=== PATIENT | female | born 1995 | race Caucasian/White ===

== ENCOUNTER 2016-12-27 21:11 | Inpatient (IN) | payer MEDICAID ==
[~2016-12-27] VITALS: Ht 152.4 cm; Wt 61.3 kg
[2016-12-27 21:38] VITALS: Ht 152.4 cm; Wt 61.3 kg
[2016-12-27] MEDS: LACTATED RINGER'S 1,000 ML IV SCH (21:55)
[2016-12-27 22:00] VITALS: BP 135/82; PULSE 75; RESP 18
[2016-12-27] MEDS ORDERED: LACTATED RINGER'S 1,000 ML IV PRN (22:00)
[2016-12-27] MEDS ORDERED: METHYLERGONOVINE 0.2 MG INJ IM PRN (22:00)
[2016-12-27] MEDS ORDERED: OXYTOCIN 30 UNITS/LR 500 ML IV SCH (22:00)
[2016-12-27] MEDS ORDERED: LIDOCAINE 1% (MPF) 30 ML INJ INJ PRN (22:00)
[2016-12-27] MEDS ORDERED: CARBOPROST 250 MCG INJ IM PRN (22:00)
[2016-12-27] MEDS ORDERED: OXYTOCIN 30 UNITS/LR 500 ML IV PRN (22:00)
[2016-12-27] MEDS ORDERED: ACETAMINOPHEN/CODEINE #3 TAB PO PRN (22:00)
[2016-12-27] MEDS ORDERED: MISOPROSTOL 200 MCG TAB PR PRN (22:00)
[2016-12-27] MEDS ORDERED: IBUPROFEN 600 MG TAB PO PRN (22:00)
[2016-12-27] MEDS: BUTORPHANOL 2 MG INJ IV PRN (22:22)
[2016-12-27 22:44] LABS: ADD SCAN DIFF NO
[2016-12-27 22:46] LABS: BASOPHILS % 0.1 % (0.0-2.0); EOSINOPHILS % 0.3 % (0.0-7.0); HEMATOCRIT 34.4 % (37.0-47.0); HEMOGLOBIN 11.6 g/dl (12.0-16.0); LYMPHOCYTES # 1.4 10^3/ul (0.8-2.9); MEAN CORPUSCULAR HEMOGLOBIN 29.9 pg (29.0-33.0); MEAN CORPUSCULAR HGB CONC 33.7 g/dl (32.0-37.0); MEAN CORPUSCULAR VOLUME 88.7 fl (82.0-101.0); MEAN PLATELET VOLUME 10.2 fl (7.4-10.4); MONOCYTE # 0.5 10^3/ul (0.3-0.9); MONOCYTES % 7.8 % (0.0-11.0); NEUTROPHIL # 4.9 10^3/ul (1.6-7.5); NEUTROPHILS % 70.9 % (39.0-77.0); PLATELET COUNT 221 10^3/UL (140-415); RED BLOOD COUNT 3.88 10^6/ul (4.20-5.40); RED CELL DISTRIBUTION WIDTH 14.6 % (11.5-14.5); WHITE BLOOD COUNT 6.9 10^3/ul (4.8-10.8)
[2016-12-27 23:00] LABS: INR 0.96; PARTIAL THROMBOPLASTIN TIME 25.7 Sec (25.0-35.0); PROTIME 12.8 Sec (12.2-14.2)
[2016-12-27 23:17] LABS: BARBITURATES Negative (NEGATIVE); BENZODIAZEPINES Negative (NEGATIVE); CANNABINOIDS Negative (NEGATIVE)
[2016-12-27 23:18] LABS: COCAINE Negative (NEGATIVE); OPIATES Negative (NEGATIVE)
[2016-12-28] MEDS ORDERED: MINERAL OIL LIGHT 10 ML VIAL TOP PRN ×2 (01:00→07:00)
[2016-12-28] MEDS: BUTORPHANOL 2 MG INJ IV PRN ×2 (01:52→08:55)
[2016-12-28] MEDS: LACTATED RINGER'S 1,000 ML IV SCH (04:13)
--- NOTE | 2016-12-28 08:49 | LDN ---
Date/Time of Note Date/Time of Note DATE: 12/28/16 TIME: 08:44 Delivery Summary pt pushed and delivered precipitously. partial 3rd degree tear repaired with 2- 0 vicrylx2. the partial torn ends of the external sphincter put back together with vicry lsuture. ebl [id number]. mom and baby stable to recovery. Placenta Delivered: Spontaneously Perineum intact?: No Perineal laceration: 2 Perineal laceration repair: partial third degree tear repaired Anesthesia type: Local Sponge & Needle done & correct: Yes All needle counts correct: Yes Any foreign bodies felt in the: No Problems: BARRETT BAI MD Dec 28, 2016 08:49
[2016-12-28] MEDS: DOCUSATE SODIUM 100 MG CAP PO SCH ×2 (09:00→21:08)
[2016-12-28] MEDS: OXYTOCIN 30 UNITS/LR 500 ML IV SCH ×4 (09:03→15:37)
[2016-12-28] MEDS: LACTATED RINGER'S 1,000 ML IV* SCH ×2 (11:12→19:12)
[2016-12-28 11:15] VITALS: BP 120/80; PULSE 68; RESP 18
[2016-12-28] MEDS ORDERED: ONDANSETRON 4 MG INJ IV PRN (11:30)
[2016-12-28] MEDS ORDERED: OXYTOCIN 30 UNITS/LR 500 ML IV PRN (11:30)
[2016-12-28] MEDS ORDERED: ACETAMINOPHEN 325 MG TAB PO PRN (11:30)
[2016-12-28] MEDS ORDERED: BENZOCAINE 20% 56 ML SPRAY TOP PRN (11:30)
[2016-12-28] MEDS ORDERED: WITCH HAZEL/GLYCERIN PAD PR PRN (11:30)
[2016-12-28] MEDS ORDERED: CARBOPROST 250 MCG INJ IM PRN (11:30)
[2016-12-28] MEDS ORDERED: MISOPROSTOL 200 MCG TAB PR PRN (11:30)
[2016-12-28] MEDS ORDERED: METHYLERGONOVINE 0.2 MG INJ IM PRN (11:30)
[2016-12-28] MEDS ORDERED: DIBUCAINE 1% 30 GM OINT PR PRN (11:30)
[2016-12-28] MEDS ORDERED: LANOLIN 7 GM TUBE TOP PRN (11:30)
[2016-12-28] MEDS: IBUPROFEN 600 MG TAB PO SCH ×3 (12:09→23:29)
[2016-12-28] MEDS: ACETAMINOPHEN/CODEINE #3 TAB PO PRN (15:36)
[2016-12-28 16:05] VITALS: BP 115/69; PULSE 77; RESP 18
--- NOTE | 2016-12-28 18:30 | HP ---
Date/Time of Note Date/Time of Note DATE: 12/28/16 TIME: 18:27 OB - History Hx of Present Free Text/Dictation admitted on 12/27/2016 for C/S labor pains at term Last Menstrual Period: Mar 28, 2016 Estimated Due Date: Jan 02, 2017 : 1 Para: 0 Care: Good Care Obstetrical Complications: None Medical Complications: None Past Family/Social History * Past Medical, Surgical, Family and Obstetric Histories reviewed from chart. Blood Type: O+ Rubella: immune RPR/VDRL: Negative GBS Status: Negative HBsAG: Negative OB Admission Exam Vital Signs Vital Signs Vital Signs Date Time Temp Pulse Resp B/P Pulse Ox O2 Delivery O2 Flow Rate FiO2 12/28/16 16:05 97.9 77 18 115/69 Room Air Physical Exam HEENT: WNL Heart: Rhythm Normal Lungs: Clear, Equal Abdomen: WNL Extremities: Normal Reflexes: Normal Cervical Dilatation: 6cm Effacement: 100% Station: -2 Membranes: Intact Heart Rate: 130's Accelerations: Accelerations Present Decelerations: No Decelerations Varibility: Moderate Contractions on Admission: < 5 Minutes Apart Date/Time Contractions Began: 12/27/2016 Frequency of Contractions: Q 5 Duration: >60 seconds Intensity: Moderate Last 72 hours Lab Results CBC & BMP 12/27/16 21:55 OB Assessment/Plan Reason for admission: active labor Other Assessment: term gestation Other plan: proceed with labor JENNIFER SANTIAGO MD Dec 28, 2016 18:30
[2016-12-29 00:10] VITALS: BP 105/54; PULSE 74; RESP 18
[2016-12-29] MEDS: LACTATED RINGER'S 1,000 ML IV* SCH ×3 (03:12→19:12)
[2016-12-29 04:15] VITALS: BP 102/52; PULSE 72; RESP 18
[2016-12-29] MEDS: IBUPROFEN 600 MG TAB PO SCH ×4 (05:40→23:50)
[2016-12-29 07:59] LABS: HEMATOCRIT 26.5 % (37.0-47.0); HEMOGLOBIN 8.5 g/dl (12.0-16.0)
[2016-12-29 08:00] VITALS: BP 92/56; PULSE 61; RESP 19
[2016-12-29] MEDS: DOCUSATE SODIUM 100 MG CAP PO SCH ×2 (08:34→20:43)
[2016-12-29 16:28] VITALS: BP 102/67; PULSE 66; RESP 17
--- NOTE | 2016-12-29 16:29 | DS ---
Date/Time of Note Date/Time of Note home next day DATE: 12/29/16 TIME: 16:27 Obstetrical Discharge Record Final Diagnosis Final Diagnosis: Term delivered Other Final Diagnosis S/P V/D Vaginal Delivery Obstetrical Delivery: Spontaneous, Laceration, Repaired Condition on Discharge Physical Assessment Voiding: Yes Bowel Movement: Yes Breast: Soft, non-tender, Filling Fundus: Firm Abdomen and Incision: soft BS + Perineum: healing Episiotomy: NA Calf Tenderness: No Patient Condition: Good JENNIFER SANTIAGO MD Dec 29, 2016 16:29
[2016-12-29] MEDS ORDERED: IBUP-1542 PO (16:30)
--- NOTE | 2016-12-29 16:30 | PD.PPDC ---
[employer] Discharge Instruction Provider Information Physician Information 21 y/o female had vaginal delivery Diagnosis Final Diagnosis: S/P vaginal delivery Condition Patient Condition: Good Diet Diet: Resume Regular Diet Activity/Restrictions Activity: Normal Activity May Shower Restrictions: Nothing in the Vagina Return to Work or School: February 15, 2017 Follow-up Follow-up with Physician: 4, Week/Weeks (in clinic) Return to clinic for OB Instructions: Breast Tenderness Depression JENNIFER SANTIAGO MD Dec 29, 2016 16:30
[2016-12-29 20:00] VITALS: BP 114/71; PULSE 79; RESP 18
[2016-12-29] MEDS: ACETAMINOPHEN/CODEINE #3 TAB PO PRN (20:42)
[2016-12-30] MEDS: LACTATED RINGER'S 1,000 ML IV* SCH ×2 (03:12→11:12)
[2016-12-30 04:00] VITALS: BP 108/65; PULSE 65; RESP 18
[2016-12-30] MEDS: IBUPROFEN 600 MG TAB PO SCH ×2 (06:06→11:45)
[2016-12-30 07:45] VITALS: BP 118/74; PULSE 67; RESP 18
[2016-12-30] MEDS: DOCUSATE SODIUM 100 MG CAP PO SCH (10:19)
== END 2016-12-30 15:00 | disposition home or self-care (01) | DRG 775 ==
LOC: L-D 21:11 → OBT 21:11 → L-D 21:25 → PP1 12-28 11:08
PROVIDERS: ADMIT Obstetrics & Gynecology; ATTEND Obstetrics & Gynecology
PROC: 10E0XZZ Delivery of Products of Conception, External Approach (ICD-10-PCS; principal; 2016-12-28)
PROC: 0DQR0ZZ Repair Anal Sphincter, Open Approach (ICD-10-PCS; 2016-12-28)
DX: O70.21 Third degree perineal laceration during delivery, IIIa (principal); Z37.0 Single live birth; Z3A.39 39 weeks gestation of pregnancy
CPT/HCPCS: 80307; 85014; 85018; 85025; 85610; 85730; 86592; 86703; 86900; 86901; 87340; G0463; J2590; J7120

== ENCOUNTER 2018-09-10 19:12 | Emergency (ER) | END 2018-09-10 20:04 | disposition home or self-care (01) ==